=== PATIENT | male | born 1975 | race Caucasian/White ===

== ENCOUNTER 2016-07-19 16:03 | Emergency (ER) | payer OTHER ==
[~2016-07-19] VITALS: Ht 177.8 cm; Wt 134.4 kg
[~2016-07-19 16:03] MED LIST: ACETAMINOPHEN1 EAC4 PO; DIOVAN HCT 11 TABLE1 PO; XANAX0.5 MG PO
[2016-07-19] MEDS ORDERED: QUETIAPINE FUM100 MG PO (16:46)
[2016-07-19] MEDS ORDERED: VALSARTAN-HCTZ1 EAC3 PO (16:47)
[2016-07-19] MEDS ORDERED: CARDIZEM CD,CA180 MG PO (16:49)
[2016-07-19] MEDS ORDERED: VIIBRYD40 MG PO (16:49)
[2016-07-19 18:19] LABS: COCAINE NEGATIVE (150 ng/mL); METHAMPHETAMINE NEGATIVE (500 ng/mL); PHENCYCLIDINE NEGATIVE (25 ng/mL); THC CANNABINOIDS PRESUMPTIVE POSITIVE (50 ng/mL)
[2016-07-19 18:20] LABS: AMPHETAMINE NEGATIVE (500 ng/mL); BARBITURATES NEGATIVE (200 ng/mL); BENZODIAZEPINES PRESUMPTIVE POSITIVE (150 ng/mL); INTERNAL CONTROLS VALID? YES; METHADONE NEGATIVE (200 ng/mL); OPIATES (MORPHINE) NEGATIVE (100 ng/mL); OXYCODONE NEGATIVE (100 ng/mL); PROPOXYPHENE NEGATIVE (300 ng/mL); TRICYCLIC ANTIDEPRESSANTS NEGATIVE (300 ng/mL)
[2016-07-19 18:21] LABS: ADD MEDTOX COMMENT Y
[2016-07-19 18:50] LABS: HEMATOCRIT 43.6 % (38.0-50.0); MCH 30.6 PG (29.0-34.0); MCHC 35.3 G/DL (30.0-36.0); MCV 86.5 FL (86-99); MEAN PLAT.VOLUME 9.7 uM^3 (9.0-12.4); PLATELET COUNT 435 K/uL (156-360); RBC DIS.WIDTH-CV 12.2 % (11.8-14.6); RBC DIS.WIDTH-SD 38.5 % (39-53); RED BLOOD COUNT 5.04 M/uL (4.00-5.50); WHITE BLOOD COUNT 10.8 K/uL (4.1-10.2)
[2016-07-19 18:57] LABS: BENZODIAZEPINES, URINE SCREEN POSITIVE (200 ng/mL)
[2016-07-19 19:01] LABS: CHLORIDE 103 mEq/L (99-109); POTASSIUM 3.8 mEq/L (3.7-5.4); SODIUM 138 mEq/L (136-147)
[2016-07-19 19:02] LABS: GLUCOSE 94 mg/dL (70-99)
[2016-07-19 19:04] LABS: ANION GAP 11 MEQ/L (2-14)
[2016-07-19 19:05] LABS: SERUM ETHYL ALCOHOL < 10 mg/dL
[2016-07-19 19:06] LABS: GFR ESTIMATE (CALCULATED) > 59 mL/min/
[2016-07-19 19:07] LABS: UREA NITROGEN (BUN) 10 mg/dL (9-23)
[2016-07-20 15:59] VITALS: BP 137/70
== END 2016-07-20 16:26 ==
LOC: EME 16:03
PROVIDERS: Emergency Medicine
DX: F33.2 Major depressive disorder, recurrent severe without psychotic features (principal); R45.851 Suicidal ideations; F12.10 Cannabis abuse, uncomplicated; I10 Essential (primary) hypertension; F17.200 Nicotine dependence, unspecified, uncomplicated
CPT/HCPCS: 80048; 84999; 85027; 90837; 99281; 99285; G0480